=== PATIENT | male | born 1960 | race Caucasian/White ===

== ENCOUNTER 2020-02-10 16:17 | Emergency (ER) | payer OTHER, MEDICAID ==
[~2020-02-10] VITALS: Ht 177.8 cm; Wt 115.7 kg
[2020-02-10 16:21] VITALS: Ht 177.8 cm; Wt 115.7 kg
[2020-02-10 18:47] VITALS: BP 136/77
== END 2020-02-10 18:47 | disposition home or self-care (01) ==
LOC: ED 16:17
DX: S16.1XXA Strain of muscle, fascia and tendon at neck level, initial encounter (principal); S09.8XXA Other specified injuries of head, initial encounter; V49.9XXA Car occupant (driver) (passenger) injured in unspecified traffic accident, initial encounter; Y93.I9 Activity, other involving external motion; Y92.413 State road as the place of occurrence of the external cause; Y99.8 Other external cause status
CPT/HCPCS: 90715